=== PATIENT | female | born 1965 | race African-American/Black ===

== ENCOUNTER 2023-10-07 04:40 | Emergency (ER) | payer OTHER ==
[~2023-10-07] VITALS: Ht 167.6 cm; Wt 96.0 kg
[~2023-10-07 04:40] MED LIST: SIMV10TA97 PO
[2023-10-07 04:45] VITALS: BP 153/81; TEMP 98.2; O2SAT 99
[2023-10-07 04:47] VITALS: PULSE 99; RESP 16; O2SAT 100
== END 2023-10-07 05:40 | disposition left against medical advice (07) ==
LOC: ER 04:40
DX: R04.0 Epistaxis (principal); Z53.21 Procedure and treatment not carried out due to patient leaving prior to being seen by health care provider